=== PATIENT | male | born 1965 | race Caucasian/White ===

== ENCOUNTER 2017-10-29 12:20 | Emergency (ER) | payer BC ==
[~2017-10-29] VITALS: Ht 175.3 cm; Wt 88.5 kg
[2017-10-29 12:43] VITALS: BP 165/114
== END 2017-10-29 13:39 | disposition left against medical advice (07) ==
LOC: EDUNIT# 12:20 → ER 12:22
DX: M79.89 Other specified soft tissue disorders (principal); F17.200 Nicotine dependence, unspecified, uncomplicated
CPT/HCPCS: 99281

== ENCOUNTER 2019-03-16 10:36 | Emergency (ER) | payer BC, OTHER ==
[~2019-03-16] VITALS: Ht 177.8 cm; Wt 86.2 kg
[2019-03-16] MEDS ORDERED: TETANUS,DIPTH,PERTUSS P/F (BOOSTRIX) 0.5 ML VIAL IM ONE (11:00)
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
[2019-03-16 12:36] VITALS: BP 162/94
== END 2019-03-16 12:35 | disposition home or self-care (01) ==
LOC: EDUNIT# 10:36 → ER 10:37
DX: S10.81XA Abrasion of other specified part of neck, initial encounter (principal); S40.812A Abrasion of left upper arm, initial encounter; S60.312A Abrasion of left thumb, initial encounter; S00.81XA Abrasion of other part of head, initial encounter; R90.0 Intracranial space-occupying lesion found on diagnostic imaging of central nervous system; F17.290 Nicotine dependence, other tobacco product, uncomplicated; R40.2142 Coma scale, eyes open, spontaneous, at arrival to emergency department; R40.2252 Coma scale, best verbal response, oriented, at arrival to emergency department; R40.2362 Coma scale, best motor response, obeys commands, at arrival to emergency department; Z23 Encounter for immunization; V49.40XA Driver injured in collision with unspecified motor vehicles in traffic accident, initial encounter; Y92.410 Unspecified street and highway as the place of occurrence of the external cause
CPT/HCPCS: 70450; 71045; 72125; 72170; 73030; 73140; 90471; 90715